=== PATIENT | male | born 1970 | race Caucasian/White ===

== ENCOUNTER → 2018-07-11 09:15 | Outpatient (CLI) | payer MEDICARE ==
[2016-04-03 07:05] VITALS: BMI 30.7
[~2018-07-11 09:15] MED LIST: LISINOPRIL10 MG PO; PAXIL30 MG PO; ZOCOR20 MG PO
== END | disposition home or self-care (01) ==
LOC: D.HCCARDIO 09:15
DX: R07.9 Chest pain, unspecified (principal)

== ENCOUNTER 2018-07-26 11:02 | Outpatient (CLI) | payer MEDICARE ==
[~2018-07-26] VITALS: Ht 188 cm; Wt 122.7 kg
--- NOTE | ~2018-07-26 | HEMODYNAMI ---
PATIENT:NARGIS CANDELARIA MEDICAL RECORD: [id number] : 74 LOCATION:[facility] ADMISSION DATE: 07/26/18 Generatedon:07/26/201813:19 Patient name: NARGIS CANDELARIA Patient #: [id number] SSN: : 1970 Date of study: 07/26/2018 Page: Of Hemodynamic Procedure Report Patient Data Patient Demographics Procedure consent was obtained First Name: NARGIS Gender: Male Last Name: TEAGAN : 1970 Middle Initial: CHAO Age: 48 year(s) Patient #: [id number] Race: Additional ID: [id number] Contact details [address]: [address] [place] [address] State: [place] City: [place] Zip code: [address] Past Medical History Allergies: No known allergies Admission Admission Data Admission Date: 07/26/2018 Admission Time: 11:02 Height (in.): 72 BSA: 2.45 (m2) Height (cm.): 182.88 BMI: 37.57 (kg/m2) Weight (lbs.): 277 Weight (kg.): 125.65 Lab Results Lab Result Date: 07/26/2018 Lab Result Time: 0:00 Biochemistry Name Units Result Min Max BUN mg/dl 13 --(--*-)-- 7 18 Creatinine mg/dl 1.1 --(--*-)-- 0.6 1.3 CBC Name Units Result Min Max Hemoglobin g/dl 14.8 --(-*--)-- 13.5 17.5 Procedure Procedure Types Cath Procedure Diagnostic Procedure LHC LHC w/Coronaries Sedation Charges Moderate Sedation up to 30 minutes Procedure Description Procedure Date Procedure Date: 07/26/2018 Procedure Start Time: 12:56 Procedure End Time: 13:17 Procedure Staff Name Function Brenden Brady MD Performing Physician Kb Woodson RT Monitor Belgica Saeed RT Scrub Jorge Chapin RN Nurse Livan Rose RN Split Leather Mosser Procedure Data Cath Procedure Fluoroscopy Diagnostic fluoroscopy Total fluoroscopy Time: 5.7 time: 5.7 min min Diagnostic fluoroscopy Total fluoroscopy dose: 867 dose: 867 mGy mGy Contrast Material Contrast Material Type Amount (ml) Isovue 300 41 Entry Location Entry Primary Successful Side Size Upsize Upsize Entry Closure Disla ccessful Closure Location (Fr) 1 (Fr) 2 (Fr) Remarks Device Remarks Radial Right 6 Fr Mechanical artery Short Compression Femoral Right 5 Fr Exoseal artery Estimated blood loss: 5 ml Diagnostic catheters Device Type Used For End Catheter Placement DIAGNOSTIC Chavez 110cm Procedure 5Fr catheter ([id number]) DIAGNOSTIC [place] 110cm 5 Procedure Fr catheter (400343) DIAGNOSTIC JL 4.0 5Fr Procedure catheter ([id number]) Procedure Complications No complications Procedure Medications Medication Administration Route Dosage Oxygen etCO2 Nasal cannula 2 l/min Lidocaine 2% added to field 20 Heparin Flush Bag added to field 2 bags (1000units/500ml NS) 0.9% NaCl I.V. 100 ml/hr Radial Cocktail I.A. 1 syringe (Verapomil 2mg/Nitro 400mcg/Heparin 1500units) Versed I.V. 2 mg Fentanyl I.V. 100 mcg Versed I.V. 1 mg Fentanyl I.V. 50 mcg Versed I.V. 1 mg Fentanyl I.V. 50 mcg Fentanyl I.V. 50 mcg Hemodynamics Rest BSA: 2.45 (m2) HGB: 14.8 (g/dl) O2 Consumption: Estimated: 285.2 (ml/min) O2 Con sumption indexed: Estimated:116.41 (ml/min/m) Heart Rate: 59 (bpm) Pressure Samples Time Site Value (mmHg) Purpose Heart Use Rate(bpm) 12:59 LV 165/-12,4 Snapshot 107 13:00 AO 134/75(93) Pullback 113 13:00 LV 150/5,18 Pullback 113 Gradients Valve Time Site 1 Site 2 Mean SEP/DFP Peak To Heart Use (mmHg) (sec/min) Peak Rate (mmHg) (bpm) Aortic 13:00 LV AO 6 7 16 113 150/5,18 134/75(93) Calculations Valve P-P Mean Valve Index Valve Source Name Gradient Area Flow (cm2) Aortic 16 6 16 6 Snapshots Pre Cath Intra NCS Post Cath Vital Signs Time Heart Resp SPO2 etCO2 NIBP (mmHg) Rhythm Pain Sedation Rate (ipm) (%) (mmHg) Status Level (bpm) 12:38:13 60 25 100 0 149/85(106) NSR 0 (11) 10(A) , No pain 12:42:29 73 16 100 34.7 140/92(110) NSR 0 (11) 10(A) , No pain 12:46:49 83 14 98 40 134/82(106) NSR 0 (11) 10(A) , No pain 12:51:09 80 13 99 40.7 137/82(107) NSR 0 (11) 9(A) , No pain 12:55:23 77 13 98 40.7 128/78(98) NSR 0 (11) 9(A) , No pain 12:59:42 108 15 100 40 124/80(102) NSR 0 (11) 9(A) , No pain 13:03:51 97 13 95 39.2 120/75(106) NSR 0 (11) 9(A) , No pain 13:08:03 96 13 95 40 123/79(103) NSR 0 (11) 9(A) , No pain 13:12:19 91 13 100 39.9 126/83(100) NSR 0 (11) 9(A) , No pain 13:16:31 90 12 100 42.2 138/96(121) NSR 0 (11) 10(A) , No pain Medications Time Medication Route Dose Verified Delivered Reason Notes Effectiveness by by 12:36:48 Oxygen etCO2 2 l/min Brenden Buffie used for Nasal Jose Antonio Chapin RN procedure cannula 12:36:54 Lidocaine 2% added 20ml Brenden Buffie used for to vial Jose Antonio Chapin RN procedure field 12:37:00 Heparin Flush added 2 bags Brenden Buffie used for Bag to Jose Antonio Chapin RN procedure (1000units/500ml field NS) 12:37:08 0.9% NaCl I.V. 100 Brenden Buffie Per ml/hr Jose Antonio Chapin RN physician 12:48:22 Versed I.V. 2 mg Brenden Buffie for sedation Jose Antonio Chapin RN 12:48:27 Fentanyl I.V. 100 mcg Brenden Buffie for sedation Jose Antonio Chapin RN 12:59:36 Versed I.V. 1 mg Brenden Buffie for sedation Jose Antonio Chapin RN 12:59:41 Fentanyl I.V. 50 mcg Brenden Buffie for sedation Jose Antonio Chapin RN 12:59:50 Radial Cocktail I.A. 1 Brenden Brenden for (Verapomil syringe Jose Antonio Brady MD vasodilation 2mg/Nitro 400mcg/Heparin 1500units) 13:06:44 Versed I.V. 1 mg Brenden Buffie for sedation Jose Antonio Chapin RN 13:06:48 Fentanyl I.V. 50 mcg Brenden Buffie for sedation Jose Antonio Chapin RN 13:09:38 Fentanyl I.V. 50 mcg Brenden Buffie for sedation Jose Antonio Chapin RN Procedure Log Time Note 12:20:54 Signed procedure consent form obtained from patient. 12:20:55 Diagnostic Cath status Elective 12:20:56 Time tracking: Regular hours (M-F 7:00 - 5:00) 12:21:12 Plan of Care:Hemodynamics will remain stable., Cardiac rhythm will remain stable., Comfort level will be maintained., Respiratory function will remain adequate., Patient/ family verbilizes understanding of procedure., Procedure tolerated without complication., Recovers from procedure without complications.. 12:23:04 H&P Date Dictated: 07/05/2018 Within 30 days and on chart., H&P Addendum completed by physician on day of procedure. (MUST COMPLETE FOR ALL OUTPATIENTS). 12:23:11 Patient allergic to No known allergies 12:23:26 Patient Height : 72 inches 12:23:30 Patient Weight : 277 lbs 12:28:58 Lab Result : Creatinine 1.1 mg/dl 12:28:58 Lab Result : BUN 13 mg/dl 12:28:58 Lab Result : Hemoglobin 14.8 g/dl 12:29:11 Livan Rose RN sent for patient. Start room use. 12:32:39 Patient received from Pre/Post Procedure Room to CCL 1 Alert and oriented. Tansferred to table in Supine position. 12:32:40 Warm blankets applied, and raheel hugger turned on for patient comfort. 12:32:40 Correct patient and procedure confirmed by team. 12:32:41 ECG and BP/O2 sat monitors applied to patient. 12:36:48 Oxygen 2 l/min etCO2 Nasal cannula was administered by Jorge Chapin RN; used for procedure; 12:36:54 Lidocaine 2% 20ml vial added to field was administered by Jorge Chapin RN; used for procedure; 12:36:59 Vital chart was started 12:37:00 Heparin Flush Bag (1000units/500ml NS) 2 bags added to field was administered by Jorge Chapin RN; used for procedure; 12:37:00 Full Disclosure recording started 12:37:08 0.9% NaCl 100 ml/hr I.V. was administered by Jorge Chapin RN; Per physician; 12:37:32 Rhythm: sinus rhythm 12:37:37 Pre-procedure instructions explained to patient. 12:37:38 Pre-op teaching completed and patient verbalized understanding. 12:37:46 Family in patients room. 12:37:48 Patient NPO since Midnight. 12:37:53 Is the patient allergic to Iodine/contrast media? No. 12:37:59 Is patient on blood thinner?No 12:38:07 Patient diabetic? No. 12:38:11 Previous problem with sedation/anesthesia? No ? 12:38:13 Snore? Yes 12:38:13 Sleep apnea? No 12:38:15 Deviated septum? No 12:38:15 Opens mouth fully? Yes 12:38:16 Sticks out tongue? Yes 12:38:18 Airway obstruction? No ? 12:38:24 Dentures? Yes IN TIGHT 12:38:29 Pre procedure: right posterior tibial pulse 2+ Normal; easily identifiable; not easily obliterated 12:38:34 Modified Chao's test Ulnar < 7 seconds 12:38:37 Patient pain scale 0/10 ?. 12:38:51 IV patent on arrival in left forearm with 0.9% NaCl at O. 12:38:54 Lab results completed and on chart. 12:38:58 Right Radial & Right Groin area was prepped with chlora-prep and draped in sterile fashion 12:38:59 Alarms reviewed by R. N. 12:38:59 Sharps counted by scrub and verified by R.N. 12:39:03 Use device set Radial Dx or PCI 12:39:05 ACIST Syringe (19611) opened to sterile field. 12:39:05 Medline Cath Pack ([id number]) opened to sterile field. 12:39:05 Bag Decanter (2002) opened to sterile field. 12:39:06 DIAGNOSTIC WIRE .035 260cm J wire (903831) opened to sterile field. 12:39:06 ACIST Hand Control (48597) opened to sterile field. 12:39:07 ACIST Manifold (00094) opened to sterile field. 12:39:08 MBrace Wrist Support ([id number]) opened to sterile field. 12:39:09 SHEATH 6FR Slender (12-7641) opened to sterile field. 12:39:21 Baseline sample Acquired. 12:42:41 Pre procedure: right dorsailis pedis pulse Doppler 12:43:46 Physician arrived 12:43:46 --------ALL STOP TIME OUT------ 12:43:47 Final Timeout: patient, procedure, and site verified with staff and physician. All members of the team are in agreement. 12:43:48 Right Radial & Right Groin site verified by team. 12:43:51 Fire Safety Assessment: A--An alcohol-based skin anteseptic being used preoperatively., C--Open oxygen or nitrous oxide is being used., D--An ESU, laser, or fiber-optic light is being used. 12:43:56 Sedation plan: IV Moderate Sedation Medication:Versed, Fentanyl 12:43:59 Physical assessment completed. ASA score P 2 - A patient with mild systemic disease as per Brenden Brady MD. 12:48:22 Versed 2 mg I.V. was administered by Jorge Chapin RN; for sedation; 12:48:27 Fentanyl 100 mcg I.V. was administered by Jorge Chapin RN; for sedation; 12:56:43 Procedure started. 12:56:52 Local anesthetic to right radial artery with Lidocaine 1% by Brenden Brady MD.INITIAL ACCESS ONLY 12:58:23 A 6 Fr Short sheath was inserted into the Right Radial artery 12:58:35 A DIAGNOSTIC Chavez 110cm 5Fr catheter (931172) was advanced over the wire and used for Procedure. 12:59:36 Versed 1 mg I.V. was administered by Jorge Chapin RN; for sedation; 12:59:41 Fentanyl 50 mcg I.V. was administered by Jorge Chapin RN; for sedation; 12:59:50 Radial Cocktail (Verapomil 2mg/Nitro 400mcg/Heparin 1500units) 1 syringe I.A. was administered by Brenden Brady MD; for vasodilation; 13:00:01 LV gram done using COLLADO 13:00:06 NEEDLE Cook 21G 4cm Radial (C10050) opened to sterile field. 13:00:08 EF : 55 % 13:00:09 LV hemodynamics recorded. 13:00:11 Injector settings: Ml/sec: 5, Volume: 15, 13:01:49 RCA angiography performed. 13:02:08 Catheter exchanged over wire. 13:02:16 A DIAGNOSTIC [place] 110cm 5 Fr catheter (672367) was advanced over the wire and used for Procedure. 13:03:19 LCA angiography performed. 13:05:29 Guide Catheter removed. unable to cannulate vessel. 13:06:44 Versed 1 mg I.V. was administered by Jorge Chapin RN; for sedation; 13:06:48 Fentanyl 50 mcg I.V. was administered by Jorge Chapin RN; for sedation; 13:07:31 GUIDE 5FR EBU 3.5 catheter ([id number]) opened to sterile field. 13:07:49 5 Fr EBU 3.5 guide catheter was inserted over the wire 13:07:54 Guide Catheter removed. unable to cannulate vessel. 13:08:07 SHEATH 5FR [place] (TXP144) opened to sterile field. 13:08:16 Use device set Multipack Set 13:08:30 Local anesthetic to right femoral artery with Lidocaine 2% by Brenden Brady MD.ADDITIONAL ACCESS 13:08:39 A 5 Fr sheath was inserted into the Right Femoral artery 13:08:59 A DIAGNOSTIC JL 4.0 5Fr catheter ([id number]) was advanced over the wire and used for Procedure. 13:09:38 Fentanyl 50 mcg I.V. was administered by Jorge Chapin RN; for sedation; 13:11:35 LCA angiography performed. 13:12:09 Catheter removed. 13:12:30 EXOSEAL 5Fr (EX500) opened to sterile field. 13:12:54 Sheath removed intact; hemostasis achieved with Exoseal to the Right Femoral artery. 13:13:52 TR BAND Large ([id number]) opened to sterile field. 13:14:04 Sheath removed intact; hemostasis achieved with Mechanical Compression to the Right Radial artery. 13:14:07 Procedure ended.(Physican Out) 13:14:18 Fluoroscopy time 05.70 minutes. 13:14:23 Flurop Dose total: 867 13:14:23 Fluoroscopy dose: 867 mGy 13:14:42 Contrast amount:Isovue 300 41ml. 13:14:44 Sharps counted by scrub and verified by R.N. 13:14:49 TR band inflated with 12cc of air. 13:14:51 Insertion/operative site no bleeding no hematoma. 13:14:55 Post-op/insertion site Right Femoral artery dressed using a 4 x 4 and Tegaderm. 13:15:01 Post right femoral artery:stable, soft, clean and dry 13:15:06 Post right radial artery:stable, soft, clean and dry 13:16:10 Post Procedure Pulses reassessed and unchanged 13:16:15 Post-procedure physical assessment completed. ASA score P 2 - A patient with mild systemic disease as per Brenden Brady MD. 13:16:18 Post procedure rhythm: unchanged. 13:16:20 Estimated blood loss: 5 ml 13:16:21 Post procedure instruction explained to patient.Patient verbalizes understanding. 13:16:21 Patient needs reinforcement of post procedure teaching. 13:16:43 Procedure type changed to Cath procedure, Diagnostic procedure, LHC, LHC w/Coronaries, Sedation Charges, Moderate Sedation up to 30 minutes 13:17:38 Procedure and supply charges have been captured, reviewed, submitted and are correct. 13:17:42 Procedure Complication : No complications 13:17:44 Vital chart was stopped 13:17:45 See physician's report for complete and final results. 13:17:47 Report given to Pre/Post Procedure Room. 13:17:51 Patient transfered to Pre/Post Procedure Room with Stretcher. 13:17:53 Procedure ended. 13:17:53 Full Disclosure recording stopped 13:17:57 End room use (Document Last) Device Usage Item Name Manufacture Quantity Catalog Hospital Part Current Minimal Lot# / Number Charge Number Stock Stock Serial# Code [facility] Acist 1 43107 146258 756197 042359 20 Syringe Insmed (05523) Systems Inc Medline Medline 1 [id number] 433615 72457 166497 5 Cath Pack ([id number]) Bag Microtek 1 643875 79762 019259 5 Decanter [employer] Inc. () DIAGNOSTIC [facility] [place] 1 192336 877852 375428 265763 30 WIRE .035 260cm J wire (516970) ACIST Hand Acist 1 03990 133684 143361 528740 5 Control Medical (35888) Systems Inc ACIST Acist 1 17260 924881 705003 873664 5 Manifold Medical (46835) Systems Inc MBrace Advanced 1 140-0250-00 611836 43789 205101 5 Wrist Vascular Support Dynamics ([id number]) SHEATH 6FR Terumo 1 [id number] 920228 878396 622968 5 Slender (80-1060) DIAGNOSTIC Terumo 1 40-5023 064714 479946 328888 5 Chavez 110cm 5Fr catheter (328311) DIAGNOSTIC Terumo 1 40-5013 209065 447312 726398 5 [place] 110cm 5 Fr catheter (477846) GUIDE 5FR Medtronic 1 [id number] 190443 258742 495907 1 EBU 3.5 catheter ([id number]) SHEATH 5FR Terumo 1 [id number] 858989 840390 255767 5 [place] (SPI585) DIAGNOSTIC Cardinal 1 [id number] 410022 832245 641977 10 JL 4.0 5Fr Health catheter (065563T) EXOSEAL 5Fr Cardinal 1 EX500 850347 784350 834409 10 (EX500) Health TR BAND Terumo 1 [id number] 087599 251905 931328 40 Large ([id number]) NEEDLE [facility] 1 Q60116 461119 192953 642095 5 21G 4cm Radial (M82010) Signature Audit [place] Stage Time Signature Unsigned Intra-Procedure 07/26/2018 Kb Woodson 1:19:46 PM RT(R) Signatures Monitor : Kb Woodson RT Signature : Date : Time : [facility] [address] [place] [address]
[2018-07-26 11:19] VITALS: BP 125/81; Ht 188 cm; Wt 122.7 kg
[2018-07-26 11:34] LABS: BASOPHILS 0.4 % (0-2); HEMATOCRIT 42.6 % (42.0-54.0); HEMOGLOBIN 14.8 g/dL (13.5-17.5); IMMATURE GRANULOCYTES 0.5 % (0-5); MCH 31.2 pg (26.0-34.0); MCHC 34.7 g/dL (31.0-37.0); MCV 89.7 fL (80.0-100.0); MEAN PLATELET VOLUME 10.7 fL (7.4-10.4); MONOCYTES 6.7 % (2-11); NEUTROPHILS 58.4 % (40-80); PLATELET COUNT 208 10x3/uL (130-400); RBC 4.75 10x6/uL (4.20-6.10); RDW 13.2 % (11.5-14.5); WBC 7.4 10x3/uL (4.8-10.8)
[2018-07-26 11:44] LABS: CALC OSMOLALITY 282 mosm/kg (275-300); CALCIUM 9.3 mg/dL (8.5-10.1); CARBON DIOXIDE 27.4 mmol/L (21.0-32.0); CHLORIDE - SERUM 105 mmol/L (98-107); CREATININE - SERUM 1.1 mg/dL (0.6-1.3); GLUCOSE 104 mg/dL (74-106); POTASSIUM - SERUM 4.1 mmol/L (3.5-5.1); SODIUM 142 mmol/L (136-145); UREA NITROGEN 13 mg/dL (7-18); eGFR NON AFRICAN AMERICAN 76 mL/min (90-120)
--- NOTE | 2018-07-26 13:45 | NUR ---
RIGHT GROIN DRESSING C/D/I. NO S/S OF HEMATOMA NOTED. RIGHT RADIAL TR BAND IN PLACE. NO BLEEDING/HEMATOMA. VSS. FAMILY AT BEDSIDE.
--- NOTE | 2018-07-26 14:14 | NUR ---
PT RESTING COMFORTABLY. VSS. RIGHT RADIAL TR BAND IN PLACE. NO BLEEDING/HEMATOMA NOTED. RIGHT GROIN DRESSING C/D/I. NO S/S OF HEMATOMA NOTED. RIGHT PEDAL PULSE PALPABLE.
--- NOTE | 2018-07-26 14:31 | NUR ---
HEAD OF BED INC TO 30 DEGREES. PT TOLERATED WELL. VSS. RIGHT GROIN DRESSING C/D/I. NO S/S OF HEMATOMA NOTED. RIGHT PEDAL PULSE PALPABLE. 2cc OF AIR REMOVED FROM TR BAND. NO BLEEDING/HEMATOMA NOTED.
--- NOTE | 2018-07-26 14:48 | NUR ---
3cc OF AIR REMOVED FROM TR BAND. PT TOLERATED WELL. NO BLEEDING/HEMATOMA NOTED. RIGHT GROIN DRESSING C/D/I. NO S/S OF HEMATOMA NOTED. PT EATING SANDWICH AT THIS TIME. NO COMPLAINTS OF NAUSEA.
--- NOTE | 2018-07-26 15:00 | NUR ---
3cc OF AIR REMOVED FROM TR BAND. PT TOLERATED WELL. NO BLEEDING/HEMATOMA NOTED. LEFT AC PIV D/C'D WITH CATH TIP INTACT. PT INSTRUCTED TO GET DRESSED. RIGHT GROIN DRESSING C/D/I. NO S/S OF HEMATOMA NOTED.
--- NOTE | 2018-07-26 15:15 | NUR ---
DISCUSSED DISCHARGE INSTRUCTIONS WITH PT AND PT'S FAMILY. THEY VOICED UNDERSTANDING. REMOVED TR BAND AND DRESSING APPLIED TO RIGHT RADIAL SITE. NO BLEEDING/HEMATOMA NOTED. RIGHT GROIN DRESSING C/D/I. NO S/S OF HEMATOMA NOTED. PT TO RESTROOM. VOIDED WITHOUT DIFFICULTY.
--- NOTE | 2018-07-26 15:30 | NUR ---
PT TAKEN OUT TO VEHICLE BY WHEELCHAIR. NO S/S OF DISTRESS NOTED. RIGHT WRIST DRESSING C/D/I. NO S/S OF HEMATOMA. RIGHT WRIST BRACE IN PLACE AND PT INSTRUCTED TO KEEP ON FOR 2 HOURS ONCE HOME AND THEN CAN REMOVE. ALL BELONGINGS AND DISCHARGE PAPERWORK IN HAND.
== END 2018-07-26 15:30 | disposition home or self-care (01) ==
LOC: D.CATH 11:02
PROVIDERS: ATTEND Internal Medicine Cardiovascular Disease
DX: I20.9 Angina pectoris, unspecified (principal); Z01.812 Encounter for preprocedural laboratory examination

== ENCOUNTER → 2018-11-09 09:57 | Outpatient (CLI) | payer MEDICARE ==
[2018-07-26 11:19] VITALS: BMI 34.7
== END | disposition home or self-care (01) ==
LOC: D.HCCARDIO 09:57
PROVIDERS: ATTEND Internal Medicine Cardiovascular Disease
DX: R06.02 Shortness of breath (principal)

== ENCOUNTER → 2020-01-15 10:45 | Outpatient (CLI) | payer OTHER ==
[2018-07-26 11:19] VITALS: BMI 34.7
== END | disposition home or self-care (01) ==
LOC: D.RAD 10:30
PROVIDERS: ATTEND Family Medicine
DX: R13.19 Other dysphagia (principal)